=== PATIENT | female | born 1990 | race Two or more races ===

== ENCOUNTER 2024-05-06 16:13 | Emergency (ER) | payer MEDICAID ==
[~2024-05-06] VITALS: Ht 165.1 cm; Wt 74.9 kg
[2024-05-06 16:18] VITALS: BP 116/71; TEMP 98.9
[2024-05-06] MEDS: ACETAMINOPHEN 500 MG TAB PO ONE (18:40)
[2024-05-06] MEDS: LR 1,000 ML IV ONE (18:41)
[2024-05-06 18:45] LABS: KETONE, URINE AUTO RFX TRACE mg/dL (NEGATIVE); MUCUS, URINE RFX SMALL (NEGATIVE); NITRITE, URINE AUTO RFX NEGATIVE (NEGATIVE); RBC, URINE AUTO RFX 1 /HPF (0-3); SQUAM EPITHELIAL CELL UR AURFX 7 /HPF (0-6); WBC, URINE AUTO RFX 6 /HPF (0-3)
[2024-05-06 18:45] LABS: BASO % 0.4 % (0.0-1.0); EOS % 0.2 % (0.0-3.0); HEMATOCRIT 37.9 % (36.0-47.0); HEMOGLOBIN 12.8 g/dl (12.0-15.5); LYMPH # 0.3 10^3/uL (1.5-5.0); MEAN CORPUSCULAR HEMOGLOBIN 30.8 pg (27.0-33.0); MEAN CORPUSCULAR HGB CONC 33.8 g/dl (32.0-36.5); MEAN CORPUSCULAR VOLUME 91.3 fl (80.0-96.0); MONO # 0.5 10^3/uL (0.0-0.8); MONO % 9.1 % (2.0-8.0); NEUTROPHILS # 4.5 10^3/uL (1.5-8.5); NEUTROPHILS % 83.6 % (36.0-66.0); PLATELET COUNT, AUTOMATED 201 10^3/uL (150-450); RED BLOOD COUNT 4.15 10^6/uL (4.00-5.40); WHITE BLOOD COUNT 5.4 10^3/uL (4.0-10.0)
[2024-05-06 18:49] LABS: LEUKOCYTE ESTERASE UR AUTO RFX 2+ (NEGATIVE)
[2024-05-06 19:08] LABS: ALBUMIN 4.1 G/DL (3.2-5.2); ALKALINE PHOSPHATASE 78 U/L (35-104); ALT/SGPT 17 U/L (7.0-40); AST/SGOT 13 U/L (<34); BILIRUBIN,DIRECT 0.1 MG/DL (<0.4); BILIRUBIN,TOTAL 0.4 MG/DL (0.3-1.2); BLOOD UREA NITROGEN 10 MG/DL (9-23); CALCIUM LEVEL 8.9 MG/DL (8.5-10.1); CARBON DIOXIDE LEVEL 24 MMOL/L (20-31); CHLORIDE LEVEL 107 MMOL/L (98-107); CREATININE FOR GFR 0.52 MG/DL (0.55-1.30); GLOMERULAR FILTRATION RATE > 60.0 (>60); GLUCOSE, FASTING 100 MG/DL (60-100); HCG, SERUM QUALITATIVE NEGATIVE (NEGATIVE); MAGNESIUM LEVEL 1.7 MG/DL (1.8-2.4); POTASSIUM SERUM 3.3 MMOL/L (3.5-5.1); SODIUM LEVEL 142 MMOL/L (136-145); TOTAL PROTEIN 7.4 G/DL (5.7-8.2)
[2024-05-06] MEDS ORDERED: OSEL75CA PO (19:33)
[2024-05-06] MEDS ORDERED: ACET-897 PO (19:34)
[2024-05-06] MEDS: POTASSIUM CHLORIDE 10MEQ SR TABLET PO ONE (19:35)
[2024-05-06] MEDS: MAGNESIUM OXIDE 400MG TAB (MAG-OX) PO ONE (19:35)
[2024-05-06] MEDS: OSELTAMIVIR PHOSPHATE 75 MG CAP PO ONE (19:35)
[2024-05-06 19:38] VITALS: O2SAT 98
== END 2024-05-06 19:53 | disposition home or self-care (01) ==
LOC: M ED 16:13
DX: J09.X2 Influenza due to identified novel influenza A virus with other respiratory manifestations (principal); E87.6 Hypokalemia; R74.02 Elevation of levels of lactic acid dehydrogenase [LDH]; I10 Essential (primary) hypertension; Z79.899 Other long term (current) drug therapy; Z79.1 Long term (current) use of non-steroidal anti-inflammatories (NSAID)